=== PATIENT | male | born 1965 | race Caucasian/White ===

== ENCOUNTER 2018-05-15 06:01 | Day surgery (SDC) | payer OTHER ==
[~2018-05-15] VITALS: Ht 177.8 cm; Wt 86.0 kg
[~2018-05-15 06:01] MED LIST: ALBU6.7H PO; CETI10TA24 PO; FLUT16SP NS; FLUT1BLS PO; LOSA1TAB19 PO; MONT10TA9 PO; OMAL150V IM/IV; OMEP40CA6 PO; PRED50TA PO; TIOT18CA INH
[2018-05-15] MEDS ORDERED: ALBUTEROL SULFATE 2.5 MG/3 ML NPPB PRN (07:00)
[2018-05-15] MEDS ORDERED: FENTANYL PF 100 MCG/2ML ONE (07:02)
[2018-05-15] MEDS ORDERED: MIDAZOLAM 1 MG/ML, 5ML ONE ×2 (07:02)
[2018-05-15] MEDS ORDERED: GLYCOPYRROLATE 0.4 MG/2 ML, 2ML ONE ×2 (07:03→07:04)
[2018-05-15] MEDS ORDERED: DIPHENHYDRAMINE 50 MG/ML, 1ML ONE (07:03)
[2018-05-15] MEDS ORDERED: SODIUM CHLORIDE 0.9% 1,000 ML IV SCH (07:07)
[2018-05-15 07:08] VITALS: BP 135/91
[2018-05-15] MEDS ORDERED: LIDOCAINE GEL 2%, 5ML ONE (08:00)
[2018-05-15] MEDS ORDERED: LIDOCAINE 2%, 20ML ONE (08:00)
[2018-05-15] MEDS ORDERED: LIDOCAINE 4% TOPICAL SOLUTION 50 ML ONE (08:00)
== END 2018-05-15 12:30 | disposition home or self-care (01) ==
LOC: OUT 06:01
PROVIDERS: ATTEND Internal Medicine
DX: J45.50 Severe persistent asthma, uncomplicated (principal); K21.9 Gastro-esophageal reflux disease without esophagitis; I10 Essential (primary) hypertension; J30.2 Other seasonal allergic rhinitis
CPT/HCPCS: 31660; 94060; 94640; 99152; 99153; C1886; J1200; J2250; J3010; J3490; J7030

== ENCOUNTER → 2018-05-20 | Outpatient (CLI) | payer OTHER | END | disposition home or self-care (01) | LOC: CFH 11:57 | PROVIDERS: ATTEND Nurse Practitioner | DX: J98.6 Disorders of diaphragm (principal); Z87.891 Personal history of nicotine dependence | CPT/HCPCS: 71046 ==

== ENCOUNTER 2018-05-21 04:21 | Emergency (ER) | payer OTHER ==
[~2018-05-21] VITALS: Ht 177.8 cm; Wt 86.3 kg
[2018-05-21] MEDS ORDERED: ALBUTEROL/IPRATROPIUM 2.5MG/0.5MG, 3 ML ONE (05:14)
[2018-05-21] MEDS ORDERED: SODIUM CHLORIDE FLUSH 10ML SYR IVF ONE (05:30)
[2018-05-21] MEDS ORDERED: SODIUM CHLORIDE 0.9% 1,000ML IVBOLUS ONE (05:30)
[2018-05-21] MEDS ORDERED: ALBUTEROL/IPRATROPIUM 2.5MG/0.5MG, 3 ML NPPB SCH (05:30)
[2018-05-21 05:43] LABS: ALBUMIN 3.5 g/dL (3.4-5.0); ANION GAP 6 mmol/L (5-15); CALCIUM 9.3 mg/dL (8.5-10.1); CHLORIDE 101 mmol/L (98-107)
[2018-05-21 05:45] LABS: CREATININE 0.89 mg/dL (0.7-1.3)
[2018-05-21 05:47] LABS: BASOPHILS # (AUTO) 0.03 x10^3/uL (0-0.1); BASOPHILS % (AUTO) 0 % (0-1); EOSINOPHILS # (AUTO) 0.07 x10^3/uL (0-0.4); EOSINOPHILS % (AUTO) 1 % (1-7); LYMPHOCYTES # (AUTO) 1.12 x10^3/uL (1-3.4); LYMPHOCYTES % (AUTO) 9 % (22-44); MD NO; MEAN CORPUSCULAR HEMOGLOBIN 29.9 pg (27.5-34.5); MEAN CORPUSCULAR HGB CONC 34.3 g/dL (33.2-36.2); MEAN CORPUSCULAR VOLUME 87.1 fL (81-97); MEAN PLATELET VOLUME 7.6 fL (7.4-10.4); MONOCYTES # (AUTO) 0.94 x10^3/uL (0.2-0.8); MONOCYTES % (AUTO) 7 % (2-9); NEUTROPHILS # (AUTO) 11.06 x10^3/uL (1.8-6.8); NEUTROPHILS % (AUTO) 84 % (42-75); PLATELET COUNT 347 x10^3/uL (130-400); RED BLOOD COUNT 4.84 x10^6/uL (4.38-5.82); RED CELL DISTRIBUTION WIDTH 12.7 % (9.4-14.8)
[2018-05-21 08:00] VITALS: BP 133/81
== END 2018-05-21 10:20 | disposition home or self-care (01) ==
LOC: ED 06:03
DX: R06.00 Dyspnea, unspecified (principal); R09.02 Hypoxemia; I10 Essential (primary) hypertension; J45.909 Unspecified asthma, uncomplicated; Z87.891 Personal history of nicotine dependence
CPT/HCPCS: 36415; 71046; 80048; 82040; 85025; 93005; 94640; 99285; J7030; J7620

== ENCOUNTER 2018-06-05 07:50 | Day surgery (SDC) | payer OTHER ==
[~2018-06-05] VITALS: Ht 177.8 cm; Wt 88.0 kg
[2018-06-05] MEDS ORDERED: LIDOCAINE 4% TOPICAL SOLUTION 50 ML ONE (08:00)
[2018-06-05 08:19] VITALS: BP 150/91
[2018-06-05] MEDS ORDERED: SODIUM CHLORIDE 0.9% 1,000 ML IV SCH (08:45)
[2018-06-05] MEDS ORDERED: DIPHENHYDRAMINE 50 MG/ML, 1ML IVPush ONE (09:00)
[2018-06-05] MEDS ORDERED: ALBUTEROL SULFATE 2.5 MG/3 ML ONE ×2 (09:12→13:18)
[2018-06-05] MEDS ORDERED: DIPHENHYDRAMINE 50 MG/ML, 1ML ONE (09:27)
[2018-06-05] MEDS ORDERED: MIDAZOLAM 1 MG/ML, 5ML ONE (09:29)
[2018-06-05] MEDS ORDERED: FENTANYL PF 100 MCG/2ML ONE (09:29)
[2018-06-05] MEDS ORDERED: GLYCOPYRROLATE 0.4 MG/2 ML, 2ML ONE (09:29)
[2018-06-05] MEDS ORDERED: ALBUTEROL SULFATE 2.5 MG/3 ML NPPB PRN (09:30)
== END 2018-06-05 14:00 | disposition home or self-care (01) ==
LOC: OUT 07:50
PROVIDERS: ATTEND Internal Medicine
DX: J45.50 Severe persistent asthma, uncomplicated (principal); J96.11 Chronic respiratory failure with hypoxia; K21.9 Gastro-esophageal reflux disease without esophagitis; I10 Essential (primary) hypertension
CPT/HCPCS: 31660; 94060; 94640; 99152; 99153; C1886; J1200; J2250; J3010; J7030

== ENCOUNTER 2018-08-03 07:24 | Inpatient (IN) | payer OTHER ==
[~2018-08-03] VITALS: Ht 177.8 cm; Wt 89.2 kg
[2018-08-03] MEDS ORDERED: ALBUTEROL/IPRATROPIUM 2.5MG/0.5MG, 3 ML NPPB ONE (08:00)
[2018-08-03] MEDS ORDERED: ALBUTEROL/IPRATROPIUM 2.5MG/0.5MG, 3 ML ONE (08:01)
[2018-08-03 08:16] LABS: BASOPHILS # (AUTO) 0.04 x10^3/uL (0-0.1); BASOPHILS % (AUTO) 0 % (0-1); EOSINOPHILS % (AUTO) 0 % (1-7); LYMPHOCYTES # (AUTO) 0.43 x10^3/uL (1-3.4); LYMPHOCYTES % (AUTO) 3 % (22-44); MD NO; MEAN CORPUSCULAR HEMOGLOBIN 28.2 pg (27.5-34.5); MEAN CORPUSCULAR HGB CONC 32.9 g/dL (33.2-36.2); MEAN CORPUSCULAR VOLUME 85.8 fL (81-97); MEAN PLATELET VOLUME 7.7 fL (7.4-10.4); MONOCYTES # (AUTO) 0.55 x10^3/uL (0.2-0.8); MONOCYTES % (AUTO) 4 % (2-9); NEUTROPHILS # (AUTO) 13.57 x10^3/uL (1.8-6.8); NEUTROPHILS % (AUTO) 93 % (42-75); PLATELET COUNT 465 x10^3/uL (130-400); RED BLOOD COUNT 4.58 x10^6/uL (4.38-5.82); RED CELL DISTRIBUTION WIDTH 14.4 % (9.4-14.8)
[2018-08-03 08:21] LABS: ALBUMIN 3.1 g/dL (3.4-5.0); ANION GAP 10 mmol/L (5-15); CALCIUM 9.3 mg/dL (8.5-10.1); CHLORIDE 98 mmol/L (98-107); CREATININE 0.87 mg/dL (0.7-1.3)
[2018-08-03] MEDS ORDERED: SODIUM CHLORIDE FLUSH 10ML SYR IVF ONE (09:00)
[2018-08-03] MEDS ORDERED: POTASSIUM CHLORIDE 20 MEQ TAB.ER.PRT PO ONE ×2 (09:00→10:30)
[2018-08-03] MEDS ORDERED: POTASSIUM CHLORIDE 20 MEQ TAB.ER.PRT ONE (09:22)
[2018-08-03] MEDS ORDERED: OMNIPAQUE 350 MG/ML, 100ML BOTTLE ONE (09:56)
[2018-08-03] MEDS ORDERED: VANCOMYCIN 1,700 MG in SODIUM CHLORIDE 0.9% 250 ML IV ONE (11:00)
[2018-08-03] MEDS ORDERED: VANCOMYCIN PER PHARMACY IV ONE (11:00)
[2018-08-03] MEDS ORDERED: PIPERACILLIN/TAZO/PMX 3.375GM 50 ML IVPB ONE (11:00)
[2018-08-03] MEDS ORDERED: PIPERACILLIN/TAZO/PMX 3.375GM 50 ML ONE (11:09)
[2018-08-03 11:36] VITALS: BP 123/76
[2018-08-03] MEDS ORDERED: ONDANSETRON 2MG/ML, 2ML IVPush PRN (12:00)
[2018-08-03] MEDS ORDERED: VANCOMYCIN PER PHARMACY MC PRN (12:00)
[2018-08-03] MEDS ORDERED: ACETAMINOPHEN 325 MG TABLET PO PRN (12:00)
[2018-08-03] MEDS ORDERED: ENOXAPARIN 40 MG/0.4 ML SQ SCH (12:00)
[2018-08-03] MEDS ORDERED: GUAIFENESIN/DM 200-20MG, 10ML UDC PO PRN (12:00)
[2018-08-03] MEDS: SODIUM CHLORIDE 0.9% 1,000 ML IV SCH (13:22)
[2018-08-03 13:31] VITALS: BP 120/71
[2018-08-03] MEDS: ALBUTEROL/IPRATROPIUM 2.5MG/0.5MG, 3 ML NPPB SCH ×2 (13:53→19:20)
[2018-08-03] MEDS ORDERED: PHARMACOKINETIC MONITORING MC PRN (14:00)
[2018-08-03] MEDS ORDERED: IPRATROPIUM 0.5 MG/2.5 ML INHA HHN SCH (14:00)
[2018-08-03] MEDS ORDERED: PHARMACOKINETIC CONSULTATION MC ONE (14:00)
[2018-08-03] MEDS ORDERED: VANCOMYCIN 1,700 MG in SODIUM CHLORIDE 0.9% 250 ML IV SCH (14:00)
[2018-08-03] MEDS: OXYcodone IR 5MG TABLET PO PRN ×2 (15:58→20:19)
[2018-08-03] MEDS: LINEZOLID 600 MG TABLET PO SCH (15:59)
[2018-08-03] MEDS: LACTOBACILLUS CHEW TABLET PO SCH ×2 (16:03→20:19)
[2018-08-03 16:33] VITALS: BP 131/69
[2018-08-03] MEDS: morphine SULFATE 10 MG/ML, 1ML IVPush PRN (16:33)
[2018-08-03] MEDS: PIPERACILLIN/TAZO/PMX 3.375GM 50 ML IV SCH ×2 (17:18→22:54)
[2018-08-03] MEDS: BUDESONIDE 0.5 MG/2 ML INHA INH SCH (19:25)
[2018-08-03 19:49] VITALS: BP 119/66
[2018-08-03] MEDS: MONTELUKAST 10 MG TABLET PO SCH (20:19)
[2018-08-04] MEDS: morphine SULFATE 10 MG/ML, 1ML IVPush PRN ×2 (00:10→03:20)
[2018-08-04 01:00] VITALS: BP 128/71
[2018-08-04] MEDS: LINEZOLID 600 MG TABLET PO SCH ×2 (02:54→15:26)
[2018-08-04] MEDS: ALBUTEROL/IPRATROPIUM 2.5MG/0.5MG, 3 ML NPPB SCH ×6 (03:07→19:16)
[2018-08-04] MEDS: PIPERACILLIN/TAZO/PMX 3.375GM 50 ML IV SCH ×4 (05:06→23:50)
[2018-08-04 05:36] LABS: BASOPHILS # (AUTO) 0.03 x10^3/uL (0-0.1); BASOPHILS % (AUTO) 0 % (0-1); EOSINOPHILS # (AUTO) 0.02 x10^3/uL (0-0.4); EOSINOPHILS % (AUTO) 0 % (1-7); LYMPHOCYTES # (AUTO) 1.09 x10^3/uL (1-3.4); LYMPHOCYTES % (AUTO) 7 % (22-44); MD NO; MEAN CORPUSCULAR HEMOGLOBIN 29.2 pg (27.5-34.5); MEAN CORPUSCULAR HGB CONC 33.9 g/dL (33.2-36.2); MEAN CORPUSCULAR VOLUME 86.3 fL (81-97); MEAN PLATELET VOLUME 7.4 fL (7.4-10.4); MONOCYTES # (AUTO) 0.72 x10^3/uL (0.2-0.8); MONOCYTES % (AUTO) 5 % (2-9); NEUTROPHILS # (AUTO) 12.84 x10^3/uL (1.8-6.8); NEUTROPHILS % (AUTO) 87 % (42-75); PLATELET COUNT 496 x10^3/uL (130-400); RED CELL DISTRIBUTION WIDTH 14.6 % (9.4-14.8)
[2018-08-04 05:55] LABS: ANION GAP 10 mmol/L (5-15); CALCIUM 8.9 mg/dL (8.5-10.1); CHLORIDE 99 mmol/L (98-107)
[2018-08-04 05:56] LABS: CREATININE 0.89 mg/dL (0.7-1.3)
[2018-08-04] MEDS: SODIUM CHLORIDE 0.9% 1,000 ML IV SCH ×2 (06:11→15:26)
[2018-08-04] MEDS: BUDESONIDE 0.5 MG/2 ML INHA INH SCH ×2 (06:50→19:16)
[2018-08-04 07:06] VITALS: BP 89/54
[2018-08-04] MEDS ORDERED: POTASSIUM CHLORIDE 20 MEQ TAB.ER.PRT PO ONE (08:00)
[2018-08-04] MEDS ORDERED: FENTANYL PF 100 MCG/2ML IVPush PRN (09:00)
[2018-08-04] MEDS: LACTOBACILLUS CHEW TABLET PO SCH ×3 (09:34→21:16)
[2018-08-04] MEDS: OMEPRAZOLE 20 MG CAPSULE.DR PO SCH (09:34)
[2018-08-04] MEDS: KETOROLAC 30 MG/1 ML IV PRN ×3 (10:56→23:50)
[2018-08-04 12:53] VITALS: BP 122/73
[2018-08-04] MEDS: OXYcodone IR 5MG TABLET PO PRN ×2 (14:58→21:16)
[2018-08-04 19:07] VITALS: BP 111/68
[2018-08-04] MEDS: MONTELUKAST 10 MG TABLET PO SCH (21:16)
[2018-08-05] MEDS: SODIUM CHLORIDE 0.9% 1,000 ML IV SCH ×2 (01:08→11:17)
[2018-08-05 01:20] VITALS: BP 104/62
[2018-08-05] MEDS: PIPERACILLIN/TAZO/PMX 3.375GM 50 ML IV SCH ×2 (05:10→11:17)
[2018-08-05] MEDS: LINEZOLID 600 MG TABLET PO SCH (05:10)
[2018-08-05 06:41] VITALS: BP 124/70
[2018-08-05 06:43] LABS: ANION GAP 7 mmol/L (5-15); CALCIUM 8.5 mg/dL (8.5-10.1); CHLORIDE 105 mmol/L (98-107); CREATININE 0.77 mg/dL (0.7-1.3)
[2018-08-05 06:45] LABS: BASOPHILS # (AUTO) 0.02 x10^3/uL (0-0.1); BASOPHILS % (AUTO) 0 % (0-1); EOSINOPHILS # (AUTO) 0.05 x10^3/uL (0-0.4); EOSINOPHILS % (AUTO) 0 % (1-7); LYMPHOCYTES # (AUTO) 0.77 x10^3/uL (1-3.4); LYMPHOCYTES % (AUTO) 7 % (22-44); MD NO; MEAN CORPUSCULAR HEMOGLOBIN 29.1 pg (27.5-34.5); MEAN CORPUSCULAR HGB CONC 33.6 g/dL (33.2-36.2); MEAN CORPUSCULAR VOLUME 86.7 fL (81-97); MEAN PLATELET VOLUME 7.4 fL (7.4-10.4); MONOCYTES # (AUTO) 0.83 x10^3/uL (0.2-0.8); MONOCYTES % (AUTO) 7 % (2-9); NEUTROPHILS % (AUTO) 86 % (42-75); PLATELET COUNT 456 x10^3/uL (130-400); RED BLOOD COUNT 3.83 x10^6/uL (4.38-5.82); RED CELL DISTRIBUTION WIDTH 14.4 % (9.4-14.8)
[2018-08-05] MEDS: ALBUTEROL/IPRATROPIUM 2.5MG/0.5MG, 3 ML NPPB SCH ×4 (07:00→19:20)
[2018-08-05] MEDS: BUDESONIDE 0.5 MG/2 ML INHA INH SCH ×2 (07:03→19:20)
[2018-08-05] MEDS: LACTOBACILLUS CHEW TABLET PO SCH ×3 (09:38→19:37)
[2018-08-05] MEDS: OMEPRAZOLE 20 MG CAPSULE.DR PO SCH (09:38)
[2018-08-05 12:22] VITALS: BP 135/73
[2018-08-05] MEDS: ERTAPENEM 1 GM in SODIUM CHLORIDE 0.9% 50 ML IV SCH (14:10)
[2018-08-05 19:30] VITALS: BP 119/59
[2018-08-05] MEDS: MONTELUKAST 10 MG TABLET PO SCH (19:38)
[2018-08-06] MEDS: SODIUM CHLORIDE 0.9% 1,000 ML IV SCH (00:15)
[2018-08-06 00:18] VITALS: BP 131/77
[2018-08-06] MEDS: KETOROLAC 30 MG/1 ML IV PRN (01:23)
[2018-08-06 04:43] LABS: BASOPHILS # (AUTO) 0.02 x10^3/uL (0-0.1); BASOPHILS % (AUTO) 0 % (0-1); EOSINOPHILS # (AUTO) 0.11 x10^3/uL (0-0.4); EOSINOPHILS % (AUTO) 1 % (1-7); LYMPHOCYTES # (AUTO) 1.13 x10^3/uL (1-3.4); LYMPHOCYTES % (AUTO) 10 % (22-44); MD NO; MEAN CORPUSCULAR HEMOGLOBIN 28.8 pg (27.5-34.5); MEAN CORPUSCULAR VOLUME 87.2 fL (81-97); MEAN PLATELET VOLUME 7.2 fL (7.4-10.4); MONOCYTES # (AUTO) 0.75 x10^3/uL (0.2-0.8); MONOCYTES % (AUTO) 7 % (2-9); NEUTROPHILS # (AUTO) 8.92 x10^3/uL (1.8-6.8); NEUTROPHILS % (AUTO) 82 % (42-75); PLATELET COUNT 489 x10^3/uL (130-400); RED BLOOD COUNT 3.68 x10^6/uL (4.38-5.82); RED CELL DISTRIBUTION WIDTH 14.5 % (9.4-14.8)
[2018-08-06 04:55] LABS: ANION GAP 6 mmol/L (5-15); CALCIUM 8.5 mg/dL (8.5-10.1); CHLORIDE 106 mmol/L (98-107)
[2018-08-06] MEDS: ALBUTEROL/IPRATROPIUM 2.5MG/0.5MG, 3 ML NPPB SCH ×4 (07:00→20:46)
[2018-08-06 07:17] VITALS: BP 134/79
[2018-08-06] MEDS: BUDESONIDE 0.5 MG/2 ML INHA INH SCH ×2 (09:00→20:46)
[2018-08-06] MEDS: LACTOBACILLUS CHEW TABLET PO SCH ×3 (09:45→22:14)
[2018-08-06] MEDS: OMEPRAZOLE 20 MG CAPSULE.DR PO SCH (09:45)
[2018-08-06 12:55] VITALS: BP 149/75
[2018-08-06] MEDS: ERTAPENEM 1 GM in SODIUM CHLORIDE 0.9% 50 ML IV SCH (13:40)
[2018-08-06 13:47] LABS: TROPONIN I < 0.015 ng/mL (0.000-0.045)
[2018-08-06] MEDS: OXYcodone IR 5MG TABLET PO PRN ×2 (14:27→22:14)
[2018-08-06] MEDS: ENOXAPARIN 40 MG/0.4 ML SQ SCH (14:27)
[2018-08-06 18:49] VITALS: BP 121/74
[2018-08-06] MEDS: MONTELUKAST 10 MG TABLET PO SCH (22:14)
[2018-08-07 01:11] VITALS: BP 122/77
[2018-08-07 05:42] LABS: BASOPHILS # (AUTO) 0.06 x10^3/uL (0-0.1); BASOPHILS % (AUTO) 1 % (0-1); EOSINOPHILS # (AUTO) 0.02 x10^3/uL (0-0.4); EOSINOPHILS % (AUTO) 0 % (1-7); LYMPHOCYTES # (AUTO) 1.31 x10^3/uL (1-3.4); LYMPHOCYTES % (AUTO) 10 % (22-44); MD NO; MEAN CORPUSCULAR HEMOGLOBIN 28.6 pg (27.5-34.5); MEAN CORPUSCULAR HGB CONC 33.1 g/dL (33.2-36.2); MEAN CORPUSCULAR VOLUME 86.5 fL (81-97); MONOCYTES # (AUTO) 0.54 x10^3/uL (0.2-0.8); MONOCYTES % (AUTO) 4 % (2-9); NEUTROPHILS # (AUTO) 11.09 x10^3/uL (1.8-6.8); NEUTROPHILS % (AUTO) 85 % (42-75); PLATELET COUNT 628 x10^3/uL (130-400); RED BLOOD COUNT 4.13 x10^6/uL (4.38-5.82); RED CELL DISTRIBUTION WIDTH 14.4 % (9.4-14.8)
[2018-08-07 05:46] LABS: CHLORIDE 105 mmol/L (98-107)
[2018-08-07 05:53] LABS: ANION GAP 8 mmol/L (5-15); CALCIUM 9.4 mg/dL (8.5-10.1); CREATININE 0.63 mg/dL (0.7-1.3)
[2018-08-07 07:41] VITALS: BP 117/76
[2018-08-07] MEDS: OXYcodone IR 5MG TABLET PO PRN (08:07)
[2018-08-07] MEDS: BUDESONIDE 0.5 MG/2 ML INHA INH SCH ×2 (08:12→21:00)
[2018-08-07] MEDS: ALBUTEROL/IPRATROPIUM 2.5MG/0.5MG, 3 ML NPPB SCH ×4 (08:12→20:00)
[2018-08-07] MEDS: LACTOBACILLUS CHEW TABLET PO SCH ×3 (08:51→20:34)
[2018-08-07] MEDS: OMEPRAZOLE 20 MG CAPSULE.DR PO SCH (08:51)
[2018-08-07] MEDS ORDERED: VORICONAZOLE 50 MG TABLET PO SCH (11:00)
[2018-08-07 12:08] VITALS: BP 130/73
[2018-08-07] MEDS: ERTAPENEM 1 GM in SODIUM CHLORIDE 0.9% 50 ML IV SCH (13:34)
[2018-08-07] MEDS: VORICONAZOLE 200 MG TABLET PO SCH (13:34)
[2018-08-07] MEDS: ENOXAPARIN 40 MG/0.4 ML SQ SCH (14:00)
[2018-08-07 19:17] VITALS: BP 118/75
[2018-08-07] MEDS: MONTELUKAST 10 MG TABLET PO SCH (20:34)
[2018-08-08] MEDS: VORICONAZOLE 200 MG TABLET PO SCH (00:39)
[2018-08-08] MEDS: OXYcodone IR 5MG TABLET PO PRN (00:40)
[2018-08-08 00:54] VITALS: BP 121/74
[2018-08-08 06:12] LABS: ANION GAP 8 mmol/L (5-15); CALCIUM 8.4 mg/dL (8.5-10.1); CHLORIDE 107 mmol/L (98-107); CREATININE 0.63 mg/dL (0.7-1.3)
[2018-08-08 06:14] LABS: BASOPHILS # (AUTO) 0.03 x10^3/uL (0-0.1); BASOPHILS % (AUTO) 0 % (0-1); EOSINOPHILS # (AUTO) 0.08 x10^3/uL (0-0.4); EOSINOPHILS % (AUTO) 1 % (1-7); LYMPHOCYTES # (AUTO) 1.44 x10^3/uL (1-3.4); LYMPHOCYTES % (AUTO) 12 % (22-44); MD NO; MEAN CORPUSCULAR HEMOGLOBIN 28.6 pg (27.5-34.5); MEAN CORPUSCULAR VOLUME 86.8 fL (81-97); MEAN PLATELET VOLUME 7.1 fL (7.4-10.4); MONOCYTES # (AUTO) 0.78 x10^3/uL (0.2-0.8); MONOCYTES % (AUTO) 7 % (2-9); NEUTROPHILS # (AUTO) 9.41 x10^3/uL (1.8-6.8); NEUTROPHILS % (AUTO) 80 % (42-75); PLATELET COUNT 544 x10^3/uL (130-400); RED BLOOD COUNT 3.61 x10^6/uL (4.38-5.82); RED CELL DISTRIBUTION WIDTH 14.6 % (9.4-14.8)
[2018-08-08] MEDS ORDERED: VORICONAZOLE 200 MG TABLET PO SCH (07:00)
[2018-08-08] MEDS: OMEPRAZOLE 20 MG CAPSULE.DR PO SCH (07:46)
[2018-08-08 08:08] VITALS: BP 115/71
[2018-08-08] MEDS: BUDESONIDE 0.5 MG/2 ML INHA INH SCH (08:20)
[2018-08-08] MEDS: ALBUTEROL/IPRATROPIUM 2.5MG/0.5MG, 3 ML NPPB SCH (08:20)
[2018-08-08] MEDS: LACTOBACILLUS CHEW TABLET PO SCH (08:25)
[2018-08-08] MEDS ORDERED: PRED10TA14 PO (10:18)
== END 2018-08-08 11:39 | disposition home or self-care (01) | DRG 871 ==
LOC: ED 08:39 → EDIP 10:45 → 4EST 11:25
PROVIDERS: ADMIT Internal Medicine; ATTEND Hospitalist
PROC: 02HV33Z Insertion of Infusion Device into Superior Vena Cava, Percutaneous Approach (ICD-10-PCS; principal; 2018-08-05)
PROC: B5181ZA Fluoroscopy of Superior Vena Cava using Low Osmolar Contrast, Guidance (ICD-10-PCS; 2018-08-05)
PROC: B548ZZA Ultrasonography of Superior Vena Cava, Guidance (ICD-10-PCS; 2018-08-05)
DX: A41.9 Sepsis, unspecified organism (principal); J15.9 Unspecified bacterial pneumonia; J85.1 Abscess of lung with pneumonia; J96.01 Acute respiratory failure with hypoxia; J95.89 Other postprocedural complications and disorders of respiratory system, not elsewhere classified; J45.51 Severe persistent asthma with (acute) exacerbation; D63.8 Anemia in other chronic diseases classified elsewhere; E87.6 Hypokalemia; F17.210 Nicotine dependence, cigarettes, uncomplicated; I10 Essential (primary) hypertension; I49.3 Ventricular premature depolarization; Z79.899 Other long term (current) drug therapy; K76.0 Fatty (change of) liver, not elsewhere classified; Z82.3 Family history of stroke; Z82.49 Family history of ischemic heart disease and other diseases of the circulatory system; Z83.3 Family history of diabetes mellitus; K21.9 Gastro-esophageal reflux disease without esophagitis; Y83.8 Other surgical procedures as the cause of abnormal reaction of the patient, or of later complication, without mention of misadventure at the time of the procedure; I95.9 Hypotension, unspecified
CPT/HCPCS: 36415; 36600; 77001; 84145; 87449; 99285; J7620; J7626; 36569; 71046; 71275; 76937; 80048; 82040; 82803; 83605; 83735; 84484; 85025; 85379; 86480; 87040; 87070; 87081; 87205; 87305; 93005; 94640; 96374; G0378; J1335; J1885; J2543; J3010; J3370; Q9967; C1751; J2270; J7030; J7050; J7512